=== PATIENT | female | born 1985 | race African-American/Black ===

== ENCOUNTER 2017-01-26 16:21 | Emergency (ER) | payer OTHER ==
[2017-01-26 16:29] VITALS: BP 116/76; BMI 23.0
--- NOTE | 2017-01-26 16:55 | DR.GENAD ---
HPI - Complaint/Symptoms Chief Complaint Doctors Comments: Patient admits to a non productive cough for two days associtated for two days. She denies fever or diarrhea. She admits to a history of asthma Chief Complaint:: CHEST PAIN WHEN I BREATHE. HEAD HURTING,COUGHING,SNEEZING Self Treatment fo Chief Complaint: MOTRIN AND ANTIBIOTIC AMOXICILLIAN - Source History Provided: Patient - Mode of Arrival Mode of Arrival: Ambulatory - Timing Onset of Chief Complaint: 01/25/17 PMH - PMH Past Medical History: No Past Surgical History: Yes Surgical History: Hysterectomy Past Surgical History Comment: HERNIA AND SKIN GRAFT TO LOWER LEFT LEG - Family History History of Family Medical Conditions: No - Social History Type of Tobacco Use: Cigarettes How many years tobacco product used: 15 Does any household member use tobacco: Yes Alcohol Use: None Do you use any recreational Drugs:: No Lives With: Family Lives Where: Home - infectious screening In the last 2 months have you had wt loss of >10#?: NO Have you had fever, night sweats or hemotysis?: No Have you traveled outside the country in the last 6 months?: No Isolation: Standard PE - Vital Signs Vitals: Temperature 99.5 F Pulse Rate 94 Respiratory Rate 20 Blood Pressure 116/76 O2 Sat by Pulse Oximetry 97 - Diagnosis Discharge Problem: Post tussive chest pain, COUGH - Discharge Plan Disposition: [facility] After Triage Condition: Stable - Follow ups/Referrals Follow ups/Referrals: [facility],None [Primary Care Provider] - 3 days - Instructions
[2017-01-26] MEDS ORDERED: NS 1000 ML 1,000 ML IV ONE (16:56)
[2017-01-26] MEDS ORDERED: DUONEB 0.5 MG/3 MG NEB ONE (16:56)
[2017-01-26] MEDS ORDERED: DUONEB 0.5 MG/3 MG ONE (17:07)
--- NOTE | 2017-01-26 17:30 | RAD ---
HISTORY: Coughing Study: Two view chest Comparison: None Findings: The lungs are clear without consolidation, effusion or pneumothorax. The cardiac and mediastinal co ntours are within normal limits. The soft tissues are unremarkable. IMPRESSION: 1. No acute cardiopulmonary abnormality. Reported By:
== END 2017-01-26 17:10 | disposition left against medical advice (07) ==
LOC: ER 16:33
DX: R07.89 Other chest pain (principal); R05 Cough
CPT/HCPCS: 71020; 99281; 99282; 99283; J7620